=== PATIENT | female | born 1985 | race Hispanic/Latino ===

== ENCOUNTER 2018-06-26 09:26 | Emergency (ER) | payer BC ==
[2018-06-26 09:43] VITALS: BMI 25.2
[2018-06-26 09:44] VITALS: TEMP 98.8; O2SAT 98
--- NOTE | 2018-06-26 11:19 | RAD ---
Date of service: 06/26/2018 PROCEDURE: Left hand radiographs. HISTORY: left finger injury COMPARISON: None. TECHNIQUE: PA, lateral, oblique views of the hand. FINDINGS: There was no demonstrated fracture or dislocation. The visualized soft tissues are unremarkable. IMPRESSION: No demonstrated fracture or dislocation.
[2018-06-26 12:27] VITALS: BP 122/70; PULSE 84; RESP 18
--- NOTE | 2018-06-26 13:07 | ED PDOC ---
Upper Extremity Pain/Injury Time Seen by Provider: 06/26/18 10:08 Chief Complaint (Nursing): Finger,Hand,&Wrist Chief Complaint (Provider): left middle finger History Per: Patient History/Exam Limitations: no limitations Onset/Duration Of Symptoms: Hrs (this morning), Intermittent Episodes Current Symptoms Are (Timing): Still Present Additional Complaint(s): Annalisa Sewell is a 32 year old female, with no significant past medical history, who presents to the emergency department for evaluation of a left middle finger injury onset this morning. Patient states finger was jammed on a sliding door, she's had a lot of pain and noticed it was deformed prompting ED visit. Patient reports icing the finger. She is 18 weeks but denies any abdominal pain, vaginal bleeding, discharge, other injuries or medical complaints. PDM: Dr. Olvera Past Medical History Reviewed: Historical Data, Nursing Documentation, Vital Signs Vital Signs: Last Vital Signs Temp 98.8 F 06/26/18 09:43 Pulse 84 06/26/18 12:10 Resp 18 06/26/18 12:10 BP 122/70 06/26/18 12:10 Pulse Ox 98 06/26/18 12:10 - Medical History PMH: No Chronic Diseases - Surgical History Surgical History: No Surg Hx - Family History Family History: States: Unknown Family Hx - Social History Current smoker - smoking cessation education provided: No Alcohol: None Drugs: Denies - Allergies Allergies/Adverse Reactions: Allergies Allergy/AdvReac Type Severity Reaction Status Date / Time No Known Allergies Allergy Verified 06/26/18 09:56 Review of Systems ROS Statement: Except As Marked, All Systems Reviewed And Found Negative Gastrointestinal: Negative for: Abdominal Pain Genitourinary Female: Negative for: Vaginal Discharge, Vaginal Bleeding Musculoskeletal: Positive for: Hand Pain (left middle finger pain) Physical Exam - Reviewed Nursing Documentation Reviewed: Yes Vital Signs Reviewed: Yes - Physical Exam Appears: Positive for: No Acute Distress (comfortable) Head Exam: Positive for: ATRAUMATIC, NORMAL INSPECTION, NORMOCEPHALIC Skin: Positive for: Normal Color, Warm, Dry Eye Exam: Positive for: Normal appearance, EOMI Extremity: Positive for: Normal ROM (Full ROM of finger. Full flexion and extension at PIP, DIP and MCP joints.), Other (Mild redness in middle phalanx of left middle finger.). Negative for: Deformity (No obvious deformity to left middle finger. ) Neurologic/Psych: Positive for: Alert, Oriented - ECG O2 Sat by Pulse Oximetry: 98 (RA) Pulse Ox Interpretation: Normal Medical Decision Making Medical Decision Making: Time: 10:08 Initial Impression: Left middle finger injury. Differential diagnosis includes crush injury, fracture or dislocation. Initial Plan: --Hand left 3rd digit [RAD] --Reevaluation 11:15 Hand X-Ray FINDINGS: There was no demonstrated fracture or dislocation. The visualized soft tissues are unremarkable. IMPRESSION: No demonstrated fracture or dislocation. 12:10 Upon provider evaluation patient is medically stable, and requires no further treatment in the ED at this time. Patient will be discharged home. Counseling was provided and all questions were answered regarding diagnosis and need for follow up with PMD. There is agreement to discharge plan. Return if symptoms persist or worsen. Scribe Attestation: Documented by Yohan Hinds, acting as a scribe for Rosie Springer MD Provider Scribe Attestation: All medical record entries made by the Scribe were at my direction and personally dictated by me. I have reviewed the chart and agree that the record accurately reflects my personal performance of the history, physical exam, medical decision making, and the department course for this patient. I have also personally directed, reviewed, and agree with the discharge instructions and disposition. Disposition - Clinical Impression Clinical Impression: Finger injury - Patient ED Disposition Is Patient to be Admitted: No Doctor Will See Patient In The: Office Counseled Patient/Family Regarding: Studies Performed, Diagnosis, Need For Followup - Disposition Referrals: Vivek White MD [Medical Doctor] - Disposition: Routine/Home Disposition Time: 12:00 Condition: GOOD Additional Instructions: ANNALISA SEWELL, thank you for letting us take care of you today. Your provider was Rosie Springer MD and you were treated for LT FINGER INJURY. The emergency medical care you received today was directed at your acute symptoms. If you were prescribed any medication, please fill it and take as directed. It may take several days for your symptoms to resolve. Return to the Emergency Department if your symptoms worsen, do not improve, or if you have any other problems. Please contact your doctor or call one of the physicians/clinics you have been referred to that are listed on the Patient Visit Information form that is included in your discharge packet. Bring any paperwork you were given at discharge with you along with any medications you are taking to your follow up visit. Our treatment cannot replace ongoing medical care by a primary care provider outside of the emergency department. Thank you for allowing the [facility] team to be part of your care today. If you had an X-Ray or CT scan: A Radiologist will review the ED reading if any change in treatment is needed we will contact you. If you had a blood, urine, or wound culture: It will take several days for the results, if any change in treatment is needed we will contact you. If you had an STI test: It will take 48 hours for the results. Please call after 1 week if you have not heard back. Instructions: Wolfgang Mendez (DC) Forms: [facility] ED School/Work Excuse
== END 2018-06-26 12:14 | disposition home or self-care (01) ==
LOC: H.ER 09:26
DX: S67.193A Crushing injury of left middle finger, initial encounter (principal); W23.0XXD Caught, crushed, jammed, or pinched between moving objects, subsequent encounter

== ENCOUNTER 2018-10-15 20:35 | Emergency (ER) | payer BC ==
[2018-10-15 20:35] VITALS: BMI 25.2
[2018-10-15 20:41] VITALS: RESP 16; TEMP 98.1
--- NOTE | 2018-10-15 21:06 | ED PDOC ---
HPI: General Adult Time Seen by Provider: 10/15/18 21:02 Chief Complaint (Nursing): Abnormal Skin Integrity Chief Complaint (Provider): rash History Per: Patient (33 y/o female here with uri/cough/sore throat this week now notes right right posterior buttock. Patient concerned as rash is flat and states she is concerned for meningitis. Fever 99 at home. No vomiting/ph otophobia/nuchal rigidity) Past Medical History Reviewed: Historical Data, Nursing Documentation, Vital Signs Vital Signs: Last Vital Signs Temp 98.1 F 10/15/18 20:41 Pulse 100 H 10/15/18 20:41 Resp 16 10/15/18 20:41 BP 122/73 10/15/18 20:41 Pulse Ox 98 10/15/18 20:41 Primary Care Provider: Edin Loomis - Family History Family History: States: Unknown Family Hx - Allergies Allergies/Adverse Reactions: Allergies Allergy/AdvReac Type Severity Reaction Status Date / Time No Known Allergies Allergy Verified 06/26/18 09:56 Review of Systems ROS Statement: Except As Marked, All Systems Reviewed And Found Negative Physical Exam - Reviewed Nursing Documentation Reviewed: Yes Vital Signs Reviewed: Yes - Physical Exam Appears: Positive for: Well, Non-toxic, No Acute Distress Head Exam: Positive for: ATRAUMATIC, NORMAL INSPECTION, NORMOCEPHALIC Skin: Positive for: Normal Color, Warm, DRY Eye Exam: Positive for: EOMI, Normal appearance, PERRL ENT: Positive for: Normal ENT Inspection Neck: Positive for: Normal, Painless ROM Cardiovascular/Chest: Positive for: Regular Rate, Rhythm Respiratory: Positive for: CNT, Normal Breath Sounds Gastrointestinal/Abdominal: Positive for: Normal Exam, Soft Back: Positive for: Normal Inspection Extremity: Positive for: Normal ROM Neurological/Psych: Positive for: Awake, Alert, Normal Tone - Laboratory Results Result Diagrams: 10/15/18 21:12 10/15/18 21:12 - ECG O2 Sat by Pulse Oximetry: 98 - Progress ED Course And Treament: KDUR 20MEQ X 1 DOSE RAPID STREP NEG Disposition - Clinical Impression Clinical Impression: Rash and nonspecific skin eruption - Patient ED Disposition Is Patient to be Admitted: No - Disposition Disposition: Routine/Home Disposition Time: 21:43 Condition: FAIR Instructions: Skin Rash (DC)
[2018-10-15 21:17] LABS: BASO # 0.1 K/uL (0.0-0.2); BASO % 0.6 % (0.0-2.0); EOS # 0.2 K/uL (0.0-0.7); EOS % 1.6 % (0.0-4.0); HEMOGLOBIN 11.7 g/dL (12.0-16.0); LYMPH # 3.2 K/uL (1.0-4.3); LYMPH % 26.5 % (20.0-40.0); MEAN CELL VOLUME 88.1 fl (81.0-99.0); MEAN CORPUSCULAR HEMOGLOBIN 29.5 pg (27.0-31.0); MEAN CORPUSCULAR HGB CONC 33.5 g/dL (33.0-37.0); MEAN PLATELET VOLUME 8.5 fl (7.2-11.7); MONO % 8.3 % (0.0-10.0); NEUT # 7.6 K/uL (1.8-7.0); NRBC % 0.1 % (0.0-0.0); RBC 3.96 Mil/uL (3.80-5.20); RED CELL DISTRIBUTION WIDTH 13.5 % (11.5-14.5); WHITE BLOOD COUNT 12.1 K/uL (4.8-10.8)
[2018-10-15 21:26] LABS: ALB/GLOB RATIO 1.2 (1.0-2.1); ALBUMIN 3.7 g/dL (3.5-5.0); ALT/SGPT 17 U/L (9-52); AST/SGOT 16 U/L (14-36); BLOOD UREA NITROGEN 13 mg/dl (7-17); CALCIUM 9.7 mg/dL (8.4-10.2); GFR NON-AFRICAN AMERICAN > 60
[2018-10-15] MEDS ORDERED: Potassium Chloride 20 mEq ER Tab PO ONE (21:42)
[2018-10-15 21:57] VITALS: BP 131/69; PULSE 88
[2018-10-16 05:18] VITALS: O2SAT 98
== END 2018-10-15 21:58 | disposition home or self-care (01) ==
LOC: H.ER 20:35
DX: R21 Rash and other nonspecific skin eruption (principal)